=== PATIENT | female | born 1995 | race Caucasian/White ===

== ENCOUNTER 2018-04-15 17:38 | Emergency (ER) | payer MEDICAID ==
[2014-05-06 10:43] VITALS: BMI 33.5
[~2018-04-15 17:38] MED LIST: FOLIC ACID1 MG PO
== END 2018-04-15 19:03 | disposition home or self-care (01) ==
LOC: EDBD 17:38 → D.ER 17:38
DX: K04.7 Periapical abscess without sinus (principal); K08.89 Other specified disorders of teeth and supporting structures

== ENCOUNTER 2018-09-12 17:48 | Emergency (ER) | payer MEDICAID ==
[2018-09-12 18:08] VITALS: Ht 157.5 cm
[2018-09-12 18:49] LABS: BASOPHILS 0.2 % (0-2); EOSINOPHILS 2.9 % (0-7); HEMATOCRIT 42.8 % (36.0-48.0); HEMOGLOBIN 14.3 g/dL (12-16); IMMATURE GRANULOCYTES 0.4 % (0-5); LYMPHOCYTES 26.3 % (15-50); MCH 29.1 pg (26.0-34.0); MCHC 33.4 g/dL (31.0-37.0); MCV 87.2 fL (80.0-100.0); MONOCYTES 8.1 % (2-11); NEUTROPHILS 62.1 % (40-80); RBC 4.91 10x6/uL (4.00-5.40); RDW 13.7 % (11.5-14.5)
[2018-09-12 18:51] LABS: PLATELET COUNT 267 10x3/uL (130-400)
[2018-09-12 19:01] LABS: ALBUMIN 3.8 g/dL (3.4-5.0); ALKALINE PHOSPHATASE 90 U/L (46-116); ALT (SGPT) 28 U/L (10-68); BILIRUBIN - TOTAL 0.48 mg/dL (0.2-1.3); CALC OSMOLALITY 278 mosm/kg (275-300); CALCIUM 8.7 mg/dL (8.5-10.1); CARBON DIOXIDE 28.5 mmol/L (21.0-32.0); CHLORIDE - SERUM 104 mmol/L (98-107); CREATININE - SERUM 0.9 mg/dL (0.6-1.3); GLUCOSE 122 mg/dL (74-106); PROTEIN - SERUM 7.7 g/dL (6.4-8.2); SODIUM 139 mmol/L (136-145); UREA NITROGEN 13 mg/dL (7-18); eGFR NON AFRICAN AMERICAN 83 mL/min (90-120)
[2018-09-12 19:10] LABS: HCG SERUM NEGATIVE (NEGATIVE)
[2018-09-12 20:23] LABS: APPEARANCE CLEAR (CLEAR); BILIRUBIN NEGATIVE (NEGATIVE); COLOR YELLOW (YELLOW); GLUCOSE NEGATIVE (NEGATIVE); KETONE NEGATIVE (NEGATIVE); NITRITE NEGATIVE (NEGATIVE); PROTEIN 1+ mg/dL (NEGATIVE); SPECIFIC GRAVITY 1.015 (1.005-1.020); UROBILINOGEN NORMAL (NORMAL)
[2018-09-12 20:24] LABS: EPITHELIAL CELLS 0-5 /hpf (0-5); WHITE CELLS - URINE 0-5 /hpf (0-5)
[2018-09-12 20:25] LABS: BACTERIA FEW /hpf (NONE SEEN); RED CELLS - URINE 25-50 /hpf (0-5)
[2018-09-12] MEDS ORDERED: TORADOL10 MG PO (21:03)
[2018-09-12 21:38] VITALS: BP 131/71
== END 2018-09-12 21:38 | disposition home or self-care (01) ==
LOC: D.ER 17:48
PROVIDERS: Family Medicine
DX: N93.9 Abnormal uterine and vaginal bleeding, unspecified (principal); N93.8 Other specified abnormal uterine and vaginal bleeding

== ENCOUNTER 2019-08-11 12:08 | Emergency (ER) | payer MEDICAID ==
[~2019-08-11] VITALS: Ht 157.5 cm; Wt 140.9 kg
[~2019-08-11 12:08] MED LIST changes: +TORADOL10 MG PO
[2019-08-11 12:22] VITALS: Ht 157.5 cm; Wt 140.9 kg
[2019-08-11] MEDS ORDERED: PERCOCET 10-321 EAC1 PO (14:24)
[2019-08-11 14:57] VITALS: BP 142/89
== END 2019-08-11 14:59 | disposition home or self-care (01) ==
LOC: D.ER 12:08
DX: S93.305A Unspecified dislocation of left foot, initial encounter (principal)

== ENCOUNTER → 2019-08-16 14:27 | Outpatient (CLI) | payer MEDICAID ==
[2019-08-11 12:22] VITALS: BMI 56.8
[~2019-08-16 14:27] MED LIST changes: +PERCOCET 10-321 EAC1 PO; +PERCOCET 7.5/321 TAB PO; +VISTARIL50 MG PO
== END | disposition home or self-care (01) ==
LOC: D.CT 14:27
PROVIDERS: ATTEND Nurse Practitioner Family
DX: S92.902A Unspecified fracture of left foot, initial encounter for closed fracture (principal)

== ENCOUNTER 2019-08-20 06:03 | Day surgery (SDC) | payer MEDICAID ==
[~2019-08-20] VITALS: Ht 160 cm; Wt 140.6 kg
[~2019-08-20 06:03] MED LIST changes: -PERCOCET 7.5/321 TAB PO; -VISTARIL50 MG PO
[2019-08-20 06:33] LABS: HEMATOCRIT 38.6 % (36.0-48.0); HEMOGLOBIN 13.3 g/dL (12-16); MCH 29.1 pg (26.0-34.0); MCHC 34.5 g/dL (31.0-37.0); MCV 84.5 fL (80.0-100.0); MEAN PLATELET VOLUME 8.9 fL (7.4-10.4); RBC 4.57 10x6/uL (4.00-5.40); RDW 13.7 % (11.5-14.5); WBC 8.4 10x3/uL (4.8-10.8)
[2019-08-20 07:17] LABS: HCG URINE NEGATIVE (NEGATIVE)
[2019-08-20 07:30] VITALS: BP 160/100; Ht 160 cm; Wt 140.6 kg
--- NOTE | 2019-08-20 08:12 | NUR ---
POSITIVE SUICIDE SCREENING FOR LIFETIME, SOFTWARE TOOLS BUILD ENGINEER AURA NOTIFIED.
--- NOTE | 2019-08-20 08:27 | NUR ---
DR. RUTLEDGE NOTIFIED AND REVIEWED PT'S BEHAVIOR AND ASSESSMENT RESULTS. PT IS A LOW RISK PER DR. RUTLEDGE. DR. RUTLEDGE STATED TO GIVE RESOURCES TO PT AT TIME OF DISCHARGE. NO FURTHER ORDERS AT THIS TIME. RESOURCES REVIEWED WITH PT AND SHE VERBALIZED UNDERSTANDING.
--- NOTE | 2019-08-20 09:59 | NUR ---
PREPPED FROM TOURNIQUET TO TOES CIRCUMFERENTIALLY
[2019-08-20] MEDS ORDERED: VISTARIL50 MG PO (11:15)
[2019-08-20] MEDS ORDERED: PERCOCET 7.5/321 TAB PO (11:15)
--- NOTE | 2019-08-20 13:24 | NUR ---
PT RESTING QUIETLY IN BED AT THIS TIME. DENIES NEEDS AT THIS TIME. WILL CONTINUE TO MONITOR.
--- NOTE | 2019-08-20 13:24 | OP ---
PATIENT NAME: CLARICE SCHUMACHER MEDICAL RECORD: [id number] :[birth year] LOCATION:[facility] ADMISSION DATE: SURGEON: MANUEL HOROWITZ DO DATE OF OPERATION: 08/20/2019 PROCEDURES PERFORMED: Left foot first and second tarsometatarsal fusion. PREOPERATIVE DIAGNOSIS: Lisfranc injury and fracture of the left foot. POSTOPERATIVE DIAGNOSIS: Lisfranc injury and fracture of the left foot. INDICATION FOR PROCEDURE: Ms. Schumacher is a 24-year-old female who sustained a Lisfranc injury, was seen in the ER, was placed in a boot and told to follow up in my clinic. Her swelling was severe last week and got a CT, which demonstrated a Lisfranc injury as well as a lateral cuneiform fracture. I told her the lateral cuneiform fracture was nondisplaced and would not address this unless we started to see drifting of the metatarsals laterally, which we did not see that on CT or x-ray, but this could develop in the future. She was okay with that plan and that I would be doing a fusion and due to her size, she would be more amenable to the fusion than an open reduction internal fixation due to her size and the stress beyond that joint. She was okay with that including the risks of infection, bleeding, nonunion, malunion, need for further surgery, numbness and tingling in the foot, damage to nerves and vessels in the area. She was okay with that and signed the consent. SURGEON: Manuel Horowitz DO BREAD RACKER: Rosalio Manuel, advanced nurse practitioner. DESCRIPTION OF PROCEDURE: The patient was taken to the operative suite, laid in supine position, given general anesthetic and LMA was placed. She was given 3 grams of Ancef preoperatively. The left lower extremity had been prepped and draped. Timeout was performed. Everyone was in agreement as to the correct side, site, patient, and procedure. Once that was completed, the Esmarch was used to exsanguinate the left lower extremity and the tourniquet was inflated to 350 mmHg, was up for 70 minutes. Incision was then made over the first and second metatarsals at the tarsometatarsal junction. Dissection was made down between the EHL and extensor hallucis longus and extensor pollicis brevis. The joints were then exposed first between the first metatarsal and medial cuneiform and then the second metatarsal and the middle cuneiform. The cartilage was removed from all the surfaces and then a drill and K-wire used to put holes in the bone to get a bleeding surface for the fusion. Once that was completed, the plate was placed on and a reduction was made with a large clamp and a K-wire and the H plate from [employer] was used. We did 8 screws first in the most distal and proximal corners on each in a compression type technique. These were all drilled and compressed. Once a good reduction was seen on x-ray and appropriate length of the screws, the locking screws were placed on the more inner portion and then locked into place. This was a nice reduction on AP and lateral and oblique x-ray. There were no other subluxation or fractures noted to be displaced at that time and the tourniquet was let down. Any bleeding was coagulated with a pickup and a Bovie. The skin was then closed with 3-0 Vicryl in an inverted interrupted fashion and 4-0 nylon in a horizontal mattress fashion. The patient was then placed in a modified Starr dressing after having an Adaptic, 4 x 4 placed on the incision site. She was awakened and taken to recovery in stable condition. Blood loss was minimal. OPERATIVE REPORT [id number] CLARICE SCHUMACHER COMPLICATIONS: None. TRANSINT:[id number] Voice Confirmation ID: [id number] DOCUMENT ID: [id number] MANUEL HOROWITZ DO at 1324 CC: [id number] DICTATION DATE: 08/20/19 1112 [employer] MEMBER: 08/20/19 1253 [facility] [address] [id number]
== END 2019-08-20 14:05 | disposition home or self-care (01) ==
LOC: D.OPS 06:03
PROVIDERS: Anesthesiology; ATTEND Orthopaedic Surgery
DX: S92.202A Fracture of unspecified tarsal bone(s) of left foot, initial encounter for closed fracture (principal); X58.XXXA Exposure to other specified factors, initial encounter

== ENCOUNTER 2019-09-16 18:48 | Inpatient (IN) | payer MEDICAID ==
[~2019-09-16] VITALS: Ht 160 cm; Wt 139.1 kg
[~2019-09-16 18:48] MED LIST changes: +PERCOCET 7.5/321 TAB PO; +VISTARIL50 MG PO
[2019-09-16] MEDS ORDERED: NEURONTIN 300300 MG PO (19:06)
[2019-09-16] MEDS ORDERED: ELIQUIS2.5 MG PO (19:06)
[2019-09-16 19:55] LABS: BASOPHILS 0.4 % (0-2); EOSINOPHILS 1.9 % (0-7); HEMATOCRIT 41.9 % (36.0-48.0); HEMOGLOBIN 14.1 g/dL (12-16); IMMATURE GRANULOCYTES 0.5 % (0-5); LYMPHOCYTES 27.3 % (15-50); MCH 29.3 pg (26.0-34.0); MCHC 33.7 g/dL (31.0-37.0); MCV 86.9 fL (80.0-100.0); MEAN PLATELET VOLUME 9.1 fL (7.4-10.4); MONOCYTES 6.9 % (2-11); RBC 4.82 10x6/uL (4.00-5.40); WBC 10.5 10x3/uL (4.8-10.8)
[2019-09-16 20:14] LABS: PLATELET COUNT 276 10x3/uL (130-400)
[2019-09-16 20:32] VITALS: BP 152/94
[2019-09-16 20:32] LABS: APTT 28.4 SECONDS (22.8-39.4); INR 1.08 (0.85-1.17); PROTIME 13.5 SECONDS (11.6-15.0)
[2019-09-16 20:33] LABS: D-DIMER-QUANTITATIVE < 0.27 ug/mLFEU (0.20-0.54)
[2019-09-16 20:58] LABS: ALBUMIN 3.9 g/dL (3.4-5.0); ALKALINE PHOSPHATASE 80 U/L (46-116); ALT (SGPT) 36 U/L (10-68); BILIRUBIN - TOTAL 0.51 mg/dL (0.2-1.3); CALC OSMOLALITY 276 mosm/kg (275-300); CALCIUM 9.2 mg/dL (8.5-10.1); CARBON DIOXIDE 24.1 mmol/L (21.0-32.0); CHLORIDE - SERUM 105 mmol/L (98-107); CKMB 0.2 U/L (0.0-3.6); CREATINE KINASE 51 UL (21-215); CREATININE - SERUM 0.9 mg/dL (0.6-1.3); GLUCOSE 102 mg/dL (74-106); MAGNESIUM - SERUM 1.9 mg/dL (1.8-2.4); POTASSIUM - SERUM 3.5 mmol/L (3.5-5.1); PROTEIN - SERUM 7.8 g/dL (6.4-8.2); SODIUM 139 mmol/L (136-145); TROPONIN-I < 0.017 ng/mL (0.000-0.060); UREA NITROGEN 11 mg/dL (7-18); eGFR NON AFRICAN AMERICAN 82 mL/min (90-120)
[2019-09-16 21:47] VITALS: BP 156/102
[2019-09-16 22:15] VITALS: BP 145/87
--- NOTE | 2019-09-16 23:00 | NUR ---
RECIEVED REPORT FROM ER, PT ARRIVED ON WHEELCHAIR, VSS, AAOX4, NO S/S OF DISTRESS. PT C/O CHEST PAIN WILL ADMINISTER PAIN MED WHEN DUE. PIV TO RAC INTACT, NS INFUSING BOLUS ON ARRIVAL. REDNESS NOTED ON ABDOMINAL SKIN FOLDS. TELEMETRY ON, PT NORMAL SINUS. PT DENIES ANY FURTHER NEEDS AT THIS TIME. WILL CTM.
[2019-09-16 23:14] VITALS: BP 133/81; BMI 54.3
[2019-09-17] VITALS: BP 133/81
[2019-09-17 02:51] LABS: BASOPHILS 0.1 % (0-2); EOSINOPHILS 3.5 % (0-7); HEMATOCRIT 36.2 % (36.0-48.0); IMMATURE GRANULOCYTES 0.5 % (0-5); LYMPHOCYTES 37.3 % (15-50); MCH 28.8 pg (26.0-34.0); MCHC 33.1 g/dL (31.0-37.0); MEAN PLATELET VOLUME 8.5 fL (7.4-10.4); MONOCYTES 8.8 % (2-11); NEUTROPHILS 49.8 % (40-80); RBC 4.16 10x6/uL (4.00-5.40); WBC 8.6 10x3/uL (4.8-10.8)
[2019-09-17 02:58] LABS: PLATELET COUNT 220 10x3/uL (130-400)
[2019-09-17 03:14] LABS: ALBUMIN 3.1 g/dL (3.4-5.0); ALKALINE PHOSPHATASE 65 U/L (46-116); ALT (SGPT) 32 U/L (10-68); BILIRUBIN - TOTAL 0.32 mg/dL (0.2-1.3); CALCIUM 8.1 mg/dL (8.5-10.1); CARBON DIOXIDE 24.9 mmol/L (21.0-32.0); CHLORIDE - SERUM 107 mmol/L (98-107); CKMB 0.3 U/L (0.0-3.6); CREATINE KINASE 34 UL (21-215); CREATININE - SERUM 0.8 mg/dL (0.6-1.3); MAGNESIUM - SERUM 1.8 mg/dL (1.8-2.4); PHOSPHOROUS 4.2 mg/dL (2.5-4.9); POTASSIUM - SERUM 3.2 mmol/L (3.5-5.1); PROTEIN - SERUM 6.1 g/dL (6.4-8.2); SODIUM 140 mmol/L (136-145); TROPONIN-I < 0.017 ng/mL (0.000-0.060); UREA NITROGEN 12 mg/dL (7-18); eGFR NON AFRICAN AMERICAN > 90 mL/min (90-120)
[2019-09-17 03:17] LABS: CALC OSMOLALITY 281 mosm/kg (275-300); GLUCOSE 153 mg/dL (74-106)
--- NOTE | 2019-09-17 03:30 | NUR ---
PO GABAPENTIN ORDERED. NOTIFIED METER/RELAY CRAFTSMAN. AWAITING HS TO COME PULL MEDS FROM [facility].
[2019-09-17 04:27] VITALS: BP 127/73
[2019-09-17 07:37] VITALS: BP 132/90
[2019-09-17 08:40] LABS: CKMB 0.3 U/L (0.0-3.6); CREATINE KINASE 37 UL (21-215); TROPONIN-I < 0.017 ng/mL (0.000-0.060)
[2019-09-17 11:10] VITALS: BP 143/89
[2019-09-17 14:44] VITALS: BP 141/71
[2019-09-17 15:15] VITALS: Ht 160 cm; Wt 139.1 kg
[2019-09-17 15:49] LABS: CKMB 0.1 U/L (0.0-3.6); CREATINE KINASE 42 UL (21-215)
[2019-09-17 15:51] LABS: TROPONIN-I < 0.017 ng/mL (0.000-0.060)
[2019-09-17 16:04] LABS: T4 THYROXIN - FREE 1.03 ng/dL (0.76-1.46); THYROID STIMULATING HORMONE 2.89 uIU/mL (0.36-3.74)
[2019-09-17 16:26] LABS: APPEARANCE HAZY (CLEAR); BILIRUBIN NEGATIVE (NEGATIVE); COLOR YELLOW (YELLOW); GLUCOSE NEGATIVE (NEGATIVE); KETONE NEGATIVE (NEGATIVE); NITRITE POSITIVE (NEGATIVE); PROTEIN NEGATIVE (NEGATIVE); UROBILINOGEN NORMAL (NORMAL)
[2019-09-17 16:29] LABS: BACTERIA MANY /hpf (NEGATIVE); EPITHELIAL CELLS 0-5 /hpf (0-5); RED CELLS - URINE OCC /hpf (0-5); WHITE CELLS - URINE 0-5 /hpf (NEGATIVE)
--- NOTE | 2019-09-17 16:34 | NUR ---
URINE SPECIMEN COLLECTED AND TAKEN TO LAB. WILL MONITOR.
--- NOTE | 2019-09-17 17:01 | NUR ---
REFUSED LRGE ROOM AND WALKER. HOPES TO GO HOME SOON.
--- NOTE | 2019-09-17 19:19 | NUR ---
PT ASKING IF SHE CAN GO HOME, PAGE OUT TO [facility].
--- NOTE | 2019-09-17 19:35 | NUR ---
MORPHINE 2 MG GIVEN FOR C/O PAIN TO LEFT FOOT.
[2019-09-17 20:00] VITALS: BP 135/87
--- NOTE | 2019-09-17 21:10 | NUR ---
HS MEDS GIVEN WITH FRESH ICE WATER. TYLENOL GIVEN FOR C/O ADDISON.
[2019-09-18] VITALS: BP 118/76
--- NOTE | 2019-09-18 02:42 | NUR ---
RESTING WITH EYES CLOSED, RESPERATIONS EVEN NO S/S DISTRESS NOTED.
--- NOTE | 2019-09-18 03:00 | NUR ---
I have reviewed this patient and I concur with the Shift Assessment completed by the Licensed Practical Nurse today this shift.
[2019-09-18 04:00] VITALS: BP 120/87
[2019-09-18 07:12] LABS: BASOPHILS 0.3 % (0-2); EOSINOPHILS 5.4 % (0-7); HEMOGLOBIN 11.6 g/dL (12-16); IMMATURE GRANULOCYTES 1.2 % (0-5); LYMPHOCYTES 41.3 % (15-50); MCH 28.3 pg (26.0-34.0); MCHC 32.2 g/dL (31.0-37.0); MCV 87.8 fL (80.0-100.0); MONOCYTES 6.9 % (2-11); NEUTROPHILS 44.9 % (40-80); PLATELET COUNT 222 10x3/uL (130-400); RDW 13.1 % (11.5-14.5)
[2019-09-18 07:13] LABS: CALC OSMOLALITY 278 mosm/kg (275-300); CARBON DIOXIDE 26.2 mmol/L (21.0-32.0); CHLORIDE - SERUM 107 mmol/L (98-107); CREATININE - SERUM 0.7 mg/dL (0.6-1.3); GLUCOSE 97 mg/dL (74-106); POTASSIUM - SERUM 3.8 mmol/L (3.5-5.1); SODIUM 140 mmol/L (136-145); UREA NITROGEN 12 mg/dL (7-18); eGFR NON AFRICAN AMERICAN > 90 mL/min (90-120)
[2019-09-18 07:14] LABS: WBC 5.9 10x3/uL (4.8-10.8)
[2019-09-18 07:15] LABS: RAPID PLASMA REAGIN Non Reactive (Non Reactive)
[2019-09-18 08:00] VITALS: BP 143/91
--- NOTE | 2019-09-18 08:38 | NUR ---
ASSESSMENT DONE. DENIES NEEDS
--- NOTE | 2019-09-18 10:17 | NUR ---
I have reviewed this patient and I concur with the Shift Assessment completed by the Licensed Practical Nurse today this shift.
--- NOTE | 2019-09-18 11:59 | NUR ---
UPON ADMIT PATIENT HAS NOT HAD A FLU SHOT. WHEN QUESTIONED SHE WOULD LIKE ONE. ORDERED.
--- NOTE | 2019-09-18 13:36 | NUR ---
DC GIVEN TO PT
--- NOTE | 2019-09-18 13:41 | NUR ---
DC HOME PER PERSONAL CAR
--- NOTE | 2019-09-18 17:29 | MORECARE ---
CASE MANAGEMENT DISCHARGE SUMMARY PATIENT: CLARICE SCHUMACHER UNIT: [id number] ADM DATE: 09/16/19 AGE: 24 : [birth year] SEX: F ROOM/BED: D.0203 AUTHOR: MAYTE,DOC PHYSICIAN: REFERRING PHYSICIAN: DEBRA ZARAGOZA MD DATE OF SERVICE: 09/18/19 Discharge Plan Patient Name: CLARICE SCHUMACHER Facility: [facility]:[place] : 1995 Planned Disposition: Home Anticipated Discharge Date: 09/18/19 Discharge Date: 09/18/2019 Expected LOS: 2 Initial Reviewer: [email or web address] Initial Review Date: 09/18/2019 Generated: 09/18/19 6:28 pm Comments DCP- Discharge Planning Updated by [email or web address]: Shin Bolanos on 09/18/19 4:[address] Patient Name: CLARICE SCHUMACHER Admission Status: ER Accout number: [id number] Admission Date: 09-16-2019 : 1995 Admission Diagnosis: Attending: DEBRA ZARAGOZA Current LOS: 2 Anticipated DC Date: 09-18-2019 Planned Disposition: Home Primary Insurance: MEDICAID [place] Discharge Planning Comments: CM MET WITH PT IN ROOM TO DISCUSS DISCHARGE PLANNING AND NEEDS. PT REPORTS LIVING AT HOME INDEPENDENTLY WITH HER ELI. PT HAS WHEELCHAIR AND IS WAITING ON HER FOLLOW UP APPOINTMENT TO DETERMINE IF SHE IS GOING TO BE ABLE TO HAVE THERAPY AND REHAB SERVICES. PT HAS NO OUTSIDE SERVICES ASSISTING IN THE HOME. CM DISCUSSED AVAILABILITY OF HOME HEALTH, REHAB SERVICES AND MEDICAL EQUIPMENT. PT DENIES DISCHARGE NEEDS, REPORTS HER BRIDGETT WILL PICK HER UP FOR DISCHARGE HOME. BOOK SEWING MACHINE OPERATOR NURSE NOTIFIED. Framing Consultant: Shin Bolanos DCPIA - Discharge Planning Initial Assessment Updated by [email or web address]: Shin Bolanos on 09/18/19 5:21 pm * Is the patient Alert and Oriented? Yes * How many steps to enter\exit or inside your home? NONE * PCP DR. CALIXTO * Pharmacy [facility] * Preadmission Environment Home with Family * ADLs Independent * Equipment Wheelchair * Other Equipment LINCARE * List name and contact numbers for known caregivers / representatives who currently or will assist patient after discharge: BRIDGETT LYNN, * Verbal permission to speak to the caregivers and representatives has been obtained from the patient. N/A * Community resources currently utilized None * Please name any agencies selected above. NONE * Additional services required to return to the preadmission environment? No * Can the patient safely return to the preadmission environment? Yes * Has this patient been hospitalized within the prior 30 days at any hospital? No Patient Name: CLARICE SCHUMACHER Page [phone] at 1729 All edits/amendments must be made on the electronic document DICTATION DATE: 09/18/191727 PLANNING AND ANALYSIS MANAGER: GIANCARLO 09/18/191727 RPT#: [id number] DC DATE:09/18/19 STATUS: DIS IN [facility] [address] [place] [address] END OF REPORT
== END 2019-09-18 13:41 | disposition home or self-care (01) | DRG 300 ==
LOC: D.ER 18:48 → D.M2 21:51
PROVIDERS: Family Medicine; ADMIT Internal Medicine Nephrology; ATTEND Internal Medicine Nephrology
DX: I71.2 Thoracic aortic aneurysm, without rupture (principal); Q23.1 Congenital insufficiency of aortic valve; Z68.43 Body mass index [BMI] 50.0-59.9, adult; I20.9 Angina pectoris, unspecified; E87.6 Hypokalemia; F32.9 Major depressive disorder, single episode, unspecified; E66.01 Morbid (severe) obesity due to excess calories

== ENCOUNTER → 2020-06-19 11:14 | Outpatient (CLI) | payer OTHER ==
[2019-09-17 15:15] VITALS: BMI 54.3
[~2020-06-19 11:14] MED LIST changes: +ELIQUIS2.5 MG PO; +NEURONTIN 300300 MG PO
== END | disposition home or self-care (01) ==
LOC: D.CT 05-22 15:00
PROVIDERS: ATTEND Orthopaedic Surgery
DX: S92.902A Unspecified fracture of left foot, initial encounter for closed fracture (principal)